=== PATIENT | male | born 1950 | race Hispanic/Latino ===

== ENCOUNTER 2017-12-29 17:34 | Emergency (ER) | payer OTHER ==
[~2017-12-29] VITALS: Ht 167.6 cm; Wt 79.5 kg
[~2017-12-29 17:34] MED LIST: ACTOS15 MG PO; ACTOS30 MG PO; ALTACE1.25 MG PO; ALTACE5 M1 PO; AUGMENTIN500TAB PO; BACTRIM DS1 TAB PO; CRESTOR20 MG PO; CRESTOR5 MG PO; DIABETES MED; METFORMIN1000 MG; NAPROXEN500 MG PO; ULTRAM50 MG PO
[2017-12-29] MEDS ORDERED: CIPROFLOXACN500 MG PO (18:28)
== END 2017-12-29 18:35 | disposition home or self-care (01) | DRG 605 ==
LOC: ED 17:34
DX: S91.332A Puncture wound without foreign body, left foot, initial encounter (principal); E11.9 Type 2 diabetes mellitus without complications; I10 Essential (primary) hypertension; E78.00 Pure hypercholesterolemia, unspecified; W45.0XXA Nail entering through skin, initial encounter; Y93.89 Activity, other specified; Y92.89 Other specified places as the place of occurrence of the external cause; Y99.0 Civilian activity done for income or pay